=== PATIENT | male | born 1985 | race Caucasian/White ===

== ENCOUNTER 2019-01-09 09:37 | Emergency (ER) | payer SELFPAY ==
[2019-01-09] MEDS ORDERED: MORPHINE SULFATE 5 MG/ML VIAL IVP ONE (09:40)
[2019-01-09] MEDS ORDERED: KETOROLAC 30 MG/ML VIAL IVP ONE (09:40)
[2019-01-09] MEDS ORDERED: ONDANSETRON HCL IV 4 MG/2 ML VIAL IVP ONE (09:40)
[2019-01-09] MEDS ORDERED: 0.9 % SODIUM CHLORIDE 1000ML 1,000 ML IV ONE (09:40)
--- NOTE | 2019-01-09 09:46 | Emergency Department Record ---
History of Present Illness - General Stated Complaint: BACK PAIN/ABD PAIN Time Seen by Provider: 01/09/19 09:39 Source: Patient, Family Mode of Arrival: Ambulatory Limitations: No limitations - History of Present Illness Initial Comments: 33 yo male presents with two hours of sudden onset of right flank pain. The pain is sharp and significant. It radiates from the back wrapping around toward the right groin. No new trauma. Prior history of back fracture many years ago. No recent changes in his health. No fever, chills. He has associated nausea and vomiting. No diarrhea. No dysuria or visible blood in the urine. No PCP. MD Complaint: Abdominal pain, Flank pain -: Hour(s) (2) Location: R Flank Radiation: Back, R flank, RLQ Migration to: R Flank, RLQ Severity: Severe Quality: Aching, Sharp, Stabbing Consistency: Constant Improves With: Nothing Worsens With: Nothing Context: Other (Pain woke him, no pain last night) Associated Symptoms: Anorexia - Related Data Previous Rx's Medication Instructions Recorded Hydrocodone/APAP 5/325Mg [[place] 1 each PO Q6H #12 tab 01/09/19 5Mg/325Mg] Ondansetron [Zofran Odt] 4 mg PO Q8H #6 tab.rapdis 01/09/19 Allergies Allergy/AdvReac Type Severity Reaction Status Date / Time cefaclor [From [facility]] Allergy HIVES Verified 01/09/19 09:59 Review of Systems Constitutional: Denies: Chills, Fever, Malaise, Weakness Eyes: Denies: Eye discharge ENT: Denies: Congestion, Throat pain Respiratory: Denies: Cough Cardiovascular: Denies: Chest pain, Palpitations, Syncope Endocrine: Denies: Fatigue, Polydipsia, Polyuria Gastrointestinal: Reports: As per HPI, Abdominal pain, Nausea. Denies: Diarrhea Genitourinary: Denies: Dysuria, Frequency, Hematuria Musculoskeletal: Reports: As per HPI, Back pain. Denies: Arthralgia, Joint swelling, Myalgia Skin: Denies: Bruising, Change in color, Rash Neurological: Denies: Headache Psychiatric: Denies: Anxiety Hematological/Lymphatic: Denies: Easy bleeding, Easy bruising Physical Exam - General General Appearance: Alert, Oriented x3, Cooperative, No acute distress Limitations: No limitations - Head Head exam: Atraumatic, Normal inspection - Eye Eye exam: Normal appearance, PERRL. negative: Conjunctival injection, Scleral icterus - ENT ENT exam: Normal exam, Mucous membranes moist Ear exam: Normal external inspection Nasal Exam: Normal inspection Mouth exam: Normal external inspection - Neck Neck exam: Normal inspection - Respiratory Respiratory exam: Normal lung sounds bilaterally. negative: Respiratory distress - Cardiovascular Cardiovascular Exam: Regular rate, Normal rhythm, Normal heart sounds - GI/Abdominal GI/Abdominal exam: Soft. negative: Distended, Guarding, Rebound, Rigid, Tenderness - Extremities Extremities exam: Normal inspection. negative: Pedal edema, Tenderness - Back Back exam: Reports: CVA tenderness (R), Full ROM, Tenderness. Denies: CVA tenderness (L) - Neurological Neurological exam: Alert, Oriented X3 - Psychiatric Psychiatric exam: Normal affect, Normal mood - Skin Skin exam: Dry, Intact, Normal color, Warm Course - Reevaluation(s) Reevaluation #1: 01/09/19 11:11 The CBC and CMP were reviewed No acute changes UA pending CT demonstrates a 2mm R distal ureteral stone The patient was informed. His pain is controlled at this time We discussed what to expect passing kidney stones and that he has other intr arenal stones. 01/09/19 12:18 The UA is negative for infection. Medical Decision Making - Lab Data Result diagrams: 01/09/19 10:00 01/09/19 10:00 Disposition Disposition: Discharge Clinical Impression: Renal colic on right side Disposition: Home, Self-Care Condition: (1) Good Instructions: Renal Colic (ED) Additional Instructions: Review this ER visit and the tests performed with your family doctor Call your doctor for the next available follow up appointment Return to the ER for a recheck if worse, any new concerns or questions Take the prescriptions provided as directed Prescriptions: Hydrocodone/APAP 5/325Mg [[place] 5Mg/325Mg] 1 each PO Q6H #12 tab Ondansetron [Zofran Odt] 4 mg PO Q8H #6 tab.rapdis Time of Disposition: 12:18 Quality - Quality Measures Quality Measures: N/A - Blood Pressure Screening Does Patient Have Any of the Following: No Blood Pressure Classification: Pre-Hypertensive BP Reading Systolic Measurement: 126 Diastolic Measurement: 81 Screening for High Blood Pressure: < Pre-Hypertensive BP, F/U Documented > [G8950] Pre-Hypertensive Follow-up Interventions: Referral to alternative/primary care provider.
[2019-01-09 10:33] LABS: ABSOLUTE NEUTROPHIL COUNT 7.87; BASO % 0.2 % (0-6); EOS % 0.9 % (0-6); GRAN % 73.3 % (47-80); HEMATOCRIT 47.8 % (42.0-52.0); HEMOGLOBIN 16.1 gm/dl (14.0-18.0); LYMPH % 16.3 % (16-45); MEAN CELL VOLUME 89.3 fl (81-97); MEAN CORPUSCULAR HEMOGLOBIN 30.1 pg (27-33); MEAN CORPUSCULAR HGB CONC 33.7 g/dl (32-36); MEAN PLATELET VOLUME 9.3 fl (7.4-10.4); MONO % 9.3 % (0-9); PLATELET COUNT 385 K/uL (130-400); RED BLOOD COUNT 5.35 M/uL (4.40-5.70); RED CELL DISTRIBUTION WIDTH 13.2 % (11.5-14.5); WHITE BLOOD COUNT W/O DIFF 10.7 K/uL (4.2-12.2)
[2019-01-09 10:40] LABS: BLOOD UREA NITROGEN 18 mg/dL (6-20)
[2019-01-09 10:41] LABS: CREATININE 0.8 mg/dL (0.7-1.2); EST GLOMERULAR FILTRATION RATE > 60 mL/min; LIPASE 23 U/L (13-60); TOTAL PROTEIN 7.1 g/dL (6.6-8.7)
[2019-01-09 10:43] LABS: GLUCOSE,RANDOM 125 mg/dL (74-109)
[2019-01-09 10:46] LABS: ALB/GLOB RATIO 2.2 (1.1-1.8); ALBUMIN 4.9 g/dL (4.0-5.0); ALKALINE PHOSPHATASE 96 U/L (40-129); ALT/SGPT 16 U/L (<41); AST/SGOT 16 U/L (10.0-50.0)
[2019-01-09] MEDS ORDERED: HYDROCODONE/APAP 5/325MG TABLET PO ONE (11:10)
[2019-01-09] MEDS ORDERED: ONDANSETRON 4 MG ODT TABLET SL ONE (11:10)
[2019-01-09 12:07] LABS: URINE APPEARANCE CLEAR; URINE BILIRUBIN NEGATIVE (NEGATIVE); URINE BLOOD MODERATE (NEGATIVE); URINE COLOR YELLOW; URINE KETONE NEGATIVE (NEGATIVE); URINE LEUKOCYTE ESTERASE NEGATIVE (NEGATIVE); URINE NITRITE NEGATIVE (NEGATIVE); URINE PROTEIN NEGATIVE (NEGATIVE)
[2019-01-09 12:09] LABS: URINE GLUCOSE (UA) >=1000 mg/dL (NEGATIVE)
[2019-01-09 12:12] LABS: URINE EPITHELIAL CELLS 0 - 2 (FEW); URINE WBC 0 - 2 (0-2/hpf)
--- NOTE | 2019-01-12 19:45 | CT SCAN REPORT ---
EXAM: CT SCAN ABDOMEN/PELVIS WO CONTRAST HISTORY: RIGHT FLANK PAIN. TECHNIQUE: Thin-collimation helical CT examination of the abdomen and pelvis is performed without oral or intravenous contrast administration. Lack of oral and IV contrast utilization limits evaluation of the bowel and solid viscera, respectively. COMPARISON: None. FINDINGS: There is mild dependent atelectasis within the lung bases. The visualized lung bases are otherwise clear. No pleural or pericardial effusion. No definite focal abnormality demonstrated within the liver, spleen, pancreas, nor adrenal glands, though evaluation of the pancreatic margins is limited by a paucity of intraabdominal/retroperitoneal fat. The gallbladder is incompletely distended. No cholelithiasis. No gross biliary ductal dilatation. The kidneys are normal in size and position. There is mild right perinephric fat stranding. There are a couple tiny nonobstructing calculi within the right kidney and a single tiny nonobstructing calculus in the lower pole of the left kidney. There is mild right hydroureteronephrosis down to the level of the distal right ureter just proximal to the UVJ, where there is an apparent 2 mm obstructing calculus, though the ureter is not well-delineated at this level. The left renal collecting system is nondilated. The wall of the urinary bladder is at the upper limits of normal in thickness. Cystitis would be difficult to exclude. The vasculature is normal in caliber. No definite intraabdominal, retroperitoneal, nor pelvic adenopathy. No ascites nor pneumoperitoneum. No gross bowel dilatation nor bowel wall thickening identified, though evaluation is limited. The appendix is at least partially visualized and normal in appearance. No abdominal wall hernia. No lytic or blastic bone lesion. IMPRESSION: 1. A 2 MM OBSTRUCTING CALCULUS WITHIN THE DISTAL RIGHT URETER CAUSING MILD HYDROURETERONEPHROSIS. 2. THERE ARE A COUPLE TINY NONOBSTRUCTING RIGHT RENAL CALCULI AND ONE TINY NONOBSTRUCTING LEFT RENAL CALCULUS. 3. NORMAL APPENDIX. 4. 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 JOB NUMBER: [id number] [facility]
== END 2019-01-09 12:36 | disposition home or self-care (01) ==
LOC: ER 09:37
DX: N20.1 Calculus of ureter (principal)
CPT/HCPCS: 99284 ×2; 96374; 96375; 96361; 83690; 85025; 80053; 81001; 74176; J1885; J2405; J7030

== ENCOUNTER 2019-01-10 13:13 | Emergency (ER) | payer SELFPAY ==
--- NOTE | 2019-01-10 13:31 | Emergency Department Record ---
History of Present Illness - General Chief complaint: Vomiting Stated complaint: VOMITING Time Seen by Provider: 01/10/19 13:31 Source: Patient, RN notes reviewed - Related Data Previous Rx's Medication Instructions Recorded Hydrocodone/APAP 5/325Mg [[place] 1 each PO Q6H #12 tab 01/09/19 5Mg/325Mg] Ondansetron [Zofran Odt] 4 mg PO Q8H #6 tab.rapdis 01/09/19 Tamsulosin HCl [Flomax] 0.4 mg PO DAILY #7 cap.er.24h 01/10/19 Allergies Allergy/AdvReac Type Severity Reaction Status Date / Time cefaclor [From [facility]] Allergy HIVES Verified 01/09/19 09:59 Past Medical History - SOCIAL HISTORY Smoking Status: Current every day smoker Drug Use: None - RESPIRATORY Hx Respiratory Disorders: No - CARDIOVASCULAR Hx Cardio Disorders: No - NEURO Hx Neuro Disorders: No - GI Hx GI Disorders: No - Hx Genitourinary Disorders: No - ENDOCRINE Hx Endocrine Disorders: No - MUSCULOSKELETAL Hx Musculoskeletal Disorders: Yes Hx Back Injury: Yes - PSYCH Hx Psych Problems: Yes Hx Anxiety: Yes Hx Depression: Yes - HEMATOLOGY/ONCOLOGY Hx Hematology/Oncology Disorders: No Family Medical History Hx Cancer: Grandparents Hx Dementia: Grandparents Hx Resp Disorders: Mother Hx Seizures: Mother Course - Reevaluation(s) Reevaluation #1: 01/10/19 15:[address] scan from yesterday and he has a 2 mm stone Reevaluation #2: feeling better 01/10/19 15:42 Medical Decision Making - Lab Data Result diagrams: 01/10/19 13:38 01/10/19 13:38 Disposition Clinical Impression: Kidney stone on right side, Renal colic on right side Hydronephrosis Qualifiers: Hydronephrosis type: with ureteral calculous obstruction Qualified Code(s): N13.2 - Hydronephrosis with renal and ureteral calculous obstruction Disposition: Home, Self-Care Condition: (1) Good Instructions: Kidney Stones (ED), Hydronephrosis (ED) Additional Instructions: follow up with Dr. Menendez on saturday call his office to make an appointment for the kidney stone. If the pain is intolerable go to [facility] where they can call the urologist and possibly remove the stone. please give him Dr Carty's phone number Prescriptions: Tamsulosin HCl [Flomax] 0.4 mg PO DAILY #7 cap.er.24h Forms: Patient Portal Access Time of Disposition: 15:34 Quality - Quality Measures Quality Measures: N/A - Blood Pressure Screening Does Patient Have Any of the Following: No Blood Pressure Classification: Pre-Hypertensive BP Reading Systolic Measurement: 126 Diastolic Measurement: 82 Screening for High Blood Pressure: < Pre-Hypertensive BP, F/U Documented > [G8950] Pre-Hypertensive Follow-up Interventions: Referral to alternative/primary care provider.
[2019-01-10] MEDS ORDERED: KETOROLAC 30 MG/ML VIAL IVP ONE (13:40)
[2019-01-10] MEDS ORDERED: ONDANSETRON HCL IV 4 MG/2 ML VIAL IV ONE (13:40)
[2019-01-10] MEDS ORDERED: 0.9 % SODIUM CHLORIDE 1000ML 1,000 ML IV ONE (13:40)
[2019-01-10] MEDS ORDERED: HYDROMORPHONE HCL 2 MG/ML VIAL IVP ONE (13:52)
[2019-01-10 13:58] LABS: ABSOLUTE NEUTROPHIL COUNT 11.19; HEMATOCRIT 45.2 % (42.0-52.0); HEMOGLOBIN 14.9 gm/dl (14.0-18.0); MEAN CELL VOLUME 91.1 fl (81-97); MEAN PLATELET VOLUME 9.2 fl (7.4-10.4); PLATELET COUNT 358 K/uL (130-400); RED BLOOD COUNT 4.96 M/uL (4.40-5.70); RED CELL DISTRIBUTION WIDTH 13.3 % (11.5-14.5); WHITE BLOOD COUNT W/O DIFF 13.6 K/uL (4.2-12.2)
[2019-01-10 14:05] LABS: PLATELET ESTIMATE NORMAL (NORMAL)
[2019-01-10 14:11] LABS: BLOOD UREA NITROGEN 11 mg/dL (6-20); CREATININE 0.9 mg/dL (0.7-1.2); EST GLOMERULAR FILTRATION RATE > 60 mL/min
[2019-01-10 14:14] LABS: GLUCOSE,RANDOM 108 mg/dL (74-109)
[2019-01-10] MEDS ORDERED: TAMSULOSIN HCL 0.4 MG CAP.ER.24H PO ONE (14:53)
[2019-01-10 15:11] LABS: URINE APPEARANCE CLEAR; URINE BILIRUBIN NEGATIVE (NEGATIVE); URINE BLOOD MODERATE (NEGATIVE); URINE COLOR YELLOW; URINE GLUCOSE (UA) NEGATIVE (NEGATIVE); URINE KETONE NEGATIVE (NEGATIVE); URINE LEUKOCYTE ESTERASE NEGATIVE (NEGATIVE); URINE NITRITE NEGATIVE (NEGATIVE); URINE PROTEIN NEGATIVE (NEGATIVE); URINE UROBILINOGEN 0.2 E.U./dL (0.20 - 1.00)
[2019-01-10 15:16] LABS: URINE EPITHELIAL CELLS NONE SEEN (FEW); URINE WBC NONE SEEN (0-2/hpf)
[2019-01-10 15:17] LABS: URINE BACTERIA NONE SEEN
== END 2019-01-10 16:08 | disposition home or self-care (01) ==
LOC: ER 13:13
DX: N13.2 Hydronephrosis with renal and ureteral calculous obstruction (principal); R11.10 Vomiting, unspecified; F17.210 Nicotine dependence, cigarettes, uncomplicated
CPT/HCPCS: 99284 ×2; 96374; 96375; 96361; 80048; 81001; 85027; J1885; J2405; J1170